=== PATIENT | female | born 1985 | race Two or more races ===

== ENCOUNTER 2016-11-12 16:46 | Emergency (ER) | payer OTHER ==
[~2016-11-12] VITALS: Ht 167.6 cm; Wt 77.0 kg
[2016-11-12 17:11] VITALS: BP 130/81
[2016-11-12] MEDS ORDERED: ACETAMINOPHEN 325MG TABLET PO ONE (17:45)
[2016-11-12] MEDS ORDERED: IPRATROPIUM/ALBUTEROL 0.5-3(2.5)MG/3ML NEB HHN ONE (17:45)
== END 2016-11-12 18:30 | disposition home or self-care (01) ==
LOC: ER 16:46
DX: O99.513 Diseases of the respiratory system complicating pregnancy, third trimester (principal); J06.9 Acute upper respiratory infection, unspecified; O26.893 Other specified pregnancy related conditions, third trimester; R03.0 Elevated blood-pressure reading, without diagnosis of hypertension; Z3A.33 33 weeks gestation of pregnancy
CPT/HCPCS: 94640; 99283; J7620